=== PATIENT | female | born 1935 | race Caucasian/White ===

== ENCOUNTER 2018-11-11 05:03 | Inpatient (IN) ==
--- NOTE | 2018-11-05 09:06 | Anesthesiology Consultation ---
Date of Service November 05, 2018 History Surgery Operation Date: 11/11/18 07:30 Proposed Procedures p Robotic Left Video Assisted Thoracoscopy with Left Lower Lobe Wedge Resection , Possible Left Lower Lobectomy with Mediastinal Lymphadenectomy - Clement Kay MD, FACS Height/Weight Height: 5 ft 2 in Weight: 87.543 kg Allergies Allergy/AdvReac Type Severity Reaction Status Date / Time No Known Allergies Allergy Verified 10/13/18 08:12 Medications Home Medications Medication Instructions Recorded Confirmed Last Taken aspirin [Aspirin Low Dose] 81 mg PO QAM 09/21/18 10/13/18 10/01/18 05:00 atorvastatin 20 mg PO HS 09/21/18 10/13/18 10/01/18 18:00 mg lansoprazole 30 mg PO QAM 09/21/18 10/13/18 10/02/18 03:00 lisinopril 5 mg PO QAM 09/21/18 10/13/18 10/02/18 03:00 mg metoprolol succinate 25 mg PO QAM 09/21/18 10/13/18 10/02/18 03:00 mg vitamins A,C,L-fqlo-pbfbbk 1 cap PO HS 09/21/18 10/13/18 10/01/18 18:00 [PreserVision AREDS] Past Medical History Medical History Hypertension Hyperlipidemia GERD (gastroesophageal reflux disease) Osteoarthritis Obesity Past Family History Family History Grandmother Family hx of colon cancer Past Surgical History Surgical History History of adenoidectomy History of tonsillectomy History of cataract surgery BILATERAL History of cholecystectomy OPEN History of colonoscopy History of open reduction and internal fixation (ORIF) procedure RIGHT ANKLE History of hysterectomy Social History Smoking Status: Never smoker Do You Dip or Chew Tobacco: No Hx Alcohol Use: No Alcohol Intake Frequency Comment: 0 Hx Substance Use: No substance use type: does not use
--- NOTE | 2018-11-06 10:21 | Anesthesiology Consultation ---
Date of Service November 06, 2018 Assessment & Plan Chart Review Chart Review: Acceptable Risk for Surgery (PENDING PREOP LABS AND EVALUATION OF CLINICAL STATUS AM DOS) and Patient NOT seen in Pre Admission Testing History Surgery Operation Date: 11/11/18 07:30 Proposed Procedures p Robotic Left Video Assisted Thoracoscopy with Left Lower Lobe Wedge Resection , Possible Left Lower Lobectomy with Mediastinal Lymphadenectomy - Clement Kay MD, FACS Height/Weight Height: 5 ft 2 in Weight: 87.543 kg Allergies Allergy/AdvReac Type Severity Reaction Status Date / Time No Known Allergies Allergy Verified 10/13/18 08:12 Medications Home Medications Medication Instructions Recorded Confirmed Last Taken aspirin [Aspirin Low Dose] 81 mg PO QAM 09/21/18 10/13/18 10/01/18 05:00 atorvastatin 20 mg PO HS 09/21/18 10/13/18 10/01/18 18:00 mg lansoprazole 30 mg PO QAM 09/21/18 10/13/18 10/02/18 03:00 lisinopril 5 mg PO QAM 09/21/18 10/13/18 10/02/18 03:00 mg metoprolol succinate 25 mg PO QAM 09/21/18 10/13/18 10/02/18 03:00 mg vitamins A,C,R-nffq-xooowk 1 cap PO HS 09/21/18 10/13/18 10/01/18 18:00 [PreserVision AREDS] Past Medical History Medical History Hypertension Hyperlipidemia GERD (gastroesophageal reflux disease) Osteoarthritis Obesity Pulmonary nodule Past Family History Family History Grandmother Family hx of colon cancer Past Surgical History Surgical History History of adenoidectomy History of tonsillectomy History of cataract surgery BILATERAL History of cholecystectomy OPEN History of colonoscopy History of open reduction and internal fixation (ORIF) procedure RIGHT ANKLE History of hysterectomy Social History Smoking Status: Never smoker Do You Dip or Chew Tobacco: No Hx Alcohol Use: No Alcohol Intake Frequency Comment: 0 Hx Substance Use: No substance use type: does not use Testing Electrocardiogram Date: 09/23/18 NSR with sinus arrhythmia at 61bpm. RBBB. Chest X-Ray Date: 10/02/18 Findings: + atherosclerosis of thoracic aorta Left upper lung nodule. Mild cardiomegaly.
[2018-11-11] MEDS ORDERED: LR 15ML/HR IV SCH (06:00)
[2018-11-11] MEDS ORDERED: MIDAZOLAM HCL 1 MG/ML 2ML VIAL ONE (06:44)
[2018-11-11] MEDS ORDERED: fentaNYL citrate 100 MCG/2 ML VIAL ONE ×2 (06:44→12:31)
[2018-11-11] MEDS ORDERED: LIDOCAINE 2% JELLY 5 ML TUBE ONE (06:48)
[2018-11-11] MEDS ORDERED: SODIUM CHLORIDE 0.9% PF 50 ML VIAL ONE (07:04)
[2018-11-11] MEDS ORDERED: BUPIVACAINE LIPOSOME 1.3% 266 MG/20 ML VIAL INFIL ONE (07:04)
[2018-11-11] MEDS ORDERED: BUPIVACAINE 0.5 % 5 MG/1 ML MPF 30ML VIAL ONE (07:04)
--- NOTE | 2018-11-11 07:09 | History & Physical Report ---
Date of Service November 11, 2018 Assessment & Plan (1) Left lower lobe pulmonary nodule: robot assisted left thoracoscopy with wedge resection LLL mass, possible left lower lobectomy with mediastinal lymphadenectomy Present on Admission?: Yes History of Present Illness Primary Care Provider: Luís San 83 yo female with an asymptomatic LLL mass. Has undergone a work up , including an EBUS and it appears she is a surgical candidate. Long discussion with patient and the family in the office X 2 and this am. Will proceed with a robot assisted left thoracoscopic wedge resection of mass with frozen section and probable left lower lobectomy with a lymph node dissection. Allergies Allergy/AdvReac Type Severity Reaction Status Date / Time No Known Allergies Allergy Verified 11/11/18 05:33 Home Medications Home Medications Medication Instructions Recorded Confirmed Type aspirin [Aspirin Low Dose] 81 mg PO QAM 09/21/18 11/11/18 History atorvastatin 20 mg PO HS 09/21/18 11/11/18 History lansoprazole 30 mg PO QAM 09/21/18 11/11/18 History lisinopril 5 mg PO QAM 09/21/18 11/11/18 History metoprolol succinate 25 mg PO QAM 09/21/18 11/11/18 History vitamins A,C,P-aytn-tajoav 1 cap PO HS 09/21/18 11/11/18 History [PreserVision AREDS] Past Med/Surg History Family History Grandmother Family hx of colon cancer Social History Current Living Situation: Alone Other Information That Helps Us Care for You: No Feels Safe at Home: Yes Safety Concerns: Feels Safe At This Time Smoking Status: Never smoker Do You Dip or Chew Tobacco: No Hx Alcohol Use: No Hx Substance Use: No Beliefs That Will Affect Care: None Preferred Language: Setswana Communication Ability: Effective Learning Designer Required: No Review of Systems All systems reviewed & are unremarkable except as noted in HPI & below Physical Exam 2 Vital Signs (Past 24 Hours): Last Vital Signs Temp 36.9 C 11/11/18 05:35 Pulse 66 11/11/18 05:35 Resp 18 11/11/18 05:35 BP 165/86 H 11/11/18 05:35 Pulse Ox 96 11/11/18 05:35 Physical Exam: A and O X 3. Constitutional: WD/WN, vitals as above Eyes: PERRL, conjunctivae normal, anicteric sclerae ENMT: external ear and nose normal, oropharynx normal Neck: trachea midline, no thyromegaly Respiratory: Auscultation: lungs clear to auscultation bilaterally Cardiovascular: RRR, no murmur, no edema Gastrointestinal (Abdomen): normal bowel sounds, soft, nontender, no hepatosplenomegaly Musculoskeletal: no cyanosis or clubbing, extremities motor strength 5/5 Skin: no rashes, warm and dry Neurologic: patellar DTR's 2+ bilat, sensation intact
[2018-11-11] MEDS ORDERED: CEFAZOLIN 250 MG/ML 1 GM VIAL ONE (08:18)
[2018-11-11] MEDS ORDERED: SODIUM CHLORIDE 0.9% INJ 10 ML VIAL ONE (08:18)
[2018-11-11] MEDS ORDERED: DEXAMETHASONE SOD INJ 4 MG/ML VIAL ONE (08:58)
[2018-11-11] MEDS ORDERED: LIDOCAINE HCL 2% 2 ML VIAL/AMP(20MG/ML) INFIL ONE (08:58)
[2018-11-11] MEDS ORDERED: NEOSTIGMINE METHYLSULFATE 5 MG/5 ML SYR ONE (08:58)
[2018-11-11] MEDS ORDERED: GLYCOPYRROLATE 0.2 MG/ML VIAL ONE (08:58)
[2018-11-11] MEDS ORDERED: ROCURONIUM BROMIDE 10 MG/ML 5 ML VIAL ONE ×2 (08:58→10:22)
[2018-11-11] MEDS ORDERED: PROPOFOL IV EMULSION 10 MG/ML 20 ML VIAL IV ONE (08:58)
[2018-11-11] MEDS ORDERED: ONDANSETRON INJ 2 MG/ML 2 ML VIAL ONE (08:58)
[2018-11-11] MEDS ORDERED: CEFAZOLIN 2000MG 2,000 MG/15 ML SYR IV SCH (09:00)
[2018-11-11] MEDS ORDERED: TISSEEL FIBRIN SEALANT 10ML TOP ONE (11:41)
--- NOTE | 2018-11-11 11:55 | Post Operative Brief Note ---
Immediate Post Op Note v1 Date of Surgery November 11, 2018 Pre & Post Diagnosis Operation Date: 11/11/18 07:30 Pre-Op Diagnosis: Slow-growing mass superior segment left lower lobe Post-Op Diagnosis: Adenocarcionoma left lower lobe Procedure Operation Date: 11/11/18 07:30 Actual Procedures p Left Robot Video-Assisted Thoracoscopy with Left Lower Lobe Wedge Resection, Left Lower Lobectomy, with Mediastinal Lymphadenectomy(Left) - Clement Kay MD, FACS Surgeon Clement Kay MD, FACS Real Estate Listing Consultant Taty LEON Estimated Blood Loss 200 Findings Consistent with Post-Op Diagnosis Drains Chest Tube (24fr placed intraoperatively)
[2018-11-11] MEDS ORDERED: METOCLOPRAMIDE HCL INJ 5 MG/ML 2 ML VIAL IV ONE (12:20)
[2018-11-11] MEDS ORDERED: LABETALOL HCL IV 5 MG/ML 20ML IV ONE (12:31)
[2018-11-11] MEDS ORDERED: ePHEDrine sulfate 50 MG/ML AMP IV PRN (12:51)
[2018-11-11] MEDS ORDERED: ATROPINE SULFATE 0.1 MG/ML 10ML SYR IV PRN (12:51)
[2018-11-11] MEDS ORDERED: HydrALAZINE HCL 20 MG/ML VIAL ONE (12:51)
[2018-11-11] MEDS ORDERED: HYDROmorphone INJ 2 MG/ML SYR/VIAL IV PRN (12:51)
[2018-11-11] MEDS ORDERED: HydrALAZINE HCL 20 MG/ML VIAL IV ONE (12:57)
[2018-11-11] MEDS ORDERED: HYDROmorphone INJ 1 MG/ML SYRINGE ONE (13:04)
--- NOTE | 2018-11-11 13:07 | XRay Report ---
XR chest 1V portable CLINICAL HISTORY: 83 years-old Female presenting with LLL. TECHNIQUE: Portable upright AP view of the chest was obtained. COMPARISON: 10/02/2018 and PET/CT performed at an outside hospital from 08/29/2018. FINDINGS: The patient is VENTURA rotated. Large bore left pleural drain terminates at the left apex. Cardiac silhou ette enlarged. Overall image quality is significantly degraded by body habitus and portable technique . Mildly low lung volumes. Minimal bibasilar opacity. No large effusion or pneumothorax. Osseous stru ctures normal. Upper abdomen normal. IMPRESSION: 1. Limited evaluation due to body habitus and portable technique. No evidence of pneumothorax with a large bore left pleural drain in place. Electronically signed by: Galileo Francis M.D. 11/11/2018 1:06 PM
--- NOTE | 2018-11-11 13:53 | Operative Report ---
DATE OF OPERATION: 11/11/2018 PREOPERATIVE DIAGNOSIS: Enlarging mass, left lower lobe. POSTOPERATIVE DIAGNOSIS: Nonsmall cell lung carcinoma, left lower lobe. PROCEDURE: 1. Robot assisted thoracoscopic wedge of superior segment left lower lobe. 2. Robot assisted thoracoscopic left lower lobectomy. 3. Mediastinal lymphadenectomy. SURGEON: Clement Kay MD. WOUND CARE SPECIALIST: EDWARD Sweet. (Mr. Bailey was present for the entire case and was instrumental at the patient's bedside while I was at the console). ANESTHESIA: General anesthesia, endotracheal intubation using double lumen tube. SPECIFICS OF PROCEDURE AND FINDINGS: This is an 83-year-old female who has never smoked cigarettes, but has a hypermetabolic mass growing in superior segment of her left lower lobe. She was worked up extensively including sampling of her mediastinal lymph nodes with endobronchial ultrasound and deemed to be a candidate for surgery. On the morning of 11/11/2018, I treated the patient in the Operating Room and did uncomplicated wedge resection of the left lower lobe mass. It turns out indeed this was an apparent adenocarcinoma. I proceeded with an uncomplicated left lower lobectomy with lymph node dissection. She tolerated it well and was extubated in the room. She had negligible blood loss. DESCRIPTION OF PROCEDURE: The patient was brought to Operating Room and laid in supine position. General anesthesia induced and endotracheal intubation was performed with a double lumen tube. After appropriate monitoring lines had been placed, the patient was turned to the right lateral decubitus position. Left chest prepped and draped in usual sterile fashion. Appropriate antibiotics were given and timeout had been called. A 5 mm port was placed just a bit anterior to mid axillary line at about the 8th interspace. Upon going in, it could be seen there really were very little in the way of adhesions. I then placed a 5 mm port in the paraspinous area and 8 mm port posteriorly, 8 mm port anterior and then we put a 15 mm port between the 2 anterior ports, but just above the patient's diaphragm. The 5 mm port was switched out for a 12 mm camera port. Carbon dioxide was insufflated. Upon going in, it could be seen that the left lower lobe had some adhesions, so I developed the fissure posteriorly and superiorly to free up enough of the superior segment of left lower lobe to wedge this out. This was delivered off the field in an Endobag. While waiting for the frozen section, I then took down the inferior pulmonary ligament, biopsied level 7, few level 8 nodes and a level 9 node. Coming in up, I did not see much in the way of 5 or 6, but there were fairly dense adhesions. I biopsied the level 10 node. We biopsied multiple levels, level 11 and level 12 nodes. I started developing the fissure posteriorly. The lymph nodes were quite adherent to the vessels. Frozen section came back as an apparent nonsmall cell lung carcinoma. It is important to note that when dissecting out the level 7 node, I came upon some dense white tissue and I sent a small portion off and this was muscle presumably from the esophageal wall. It did not appear malignant. I then meticulously took down the vessels which were very difficult because of the hard lymph nodes which were attached. I finally took out the 2 vessels to the superior segment as well as vessels off the continuation of pulmonary artery. It was difficult to dissect out the anterior fissure and difficult to delineate the lingual artery. Finally after meticulously dissecting this out, we finally divided the fissure between 2 branches, 1 going to the lingula, 1 going to the remaining left lower lobe. After this, we then carefully took down the branches to the left lower lobe. I then divided the inferior pulmonary vein, which we had dissected out earlier in the case and taken down to level 8 and 9 nodes. This went without difficulty. There are multiple lymph nodes, which were hard and did not appear particularly abnormal that they were not hard in weight, but more acanthotic and hard. We fired Endo-STANLEY stapler just below the takeoff of the lingual bronchus. We then completed our fissure anteriorly and delivered the specimen off the field in an Endobag by enlarging the clinic office assistant's port. I then irrigated out the chest. I really did not see much in the way of leaking and went back to 2-lung ventilation. I did use 10 mL of Tisseel to cover the vessels, staple lines as well as the bronchus and where we had dissected out the lymphatics posteriorly. I did have anesthesia place an orogastric tube and we manipulated until we got it in the area of this esophagus and insufflated air while we had covered this area with warm saline. We saw no evidence of any leaking. A 24-Irish chest tube was placed in the anterior thoracoscopy port and directed towards the apex and held in place with heavy silk suture. We then closed the clinic office assistant's port with 0 Vicryl in running continuous fashion to close the muscle layers and a posterior 8 mm port was closed using a single 0 Vicryl. A 4-0 Monocryl was used in running subcuticular fashion to close all of the skin edges. Heavy silk was used to suture the chest tube in place. It should be noted that before the case started, we mixed 266 mg of Exparel with 30 mL of bupivacaine 0.25% and 250 mL of normal saline. We then used this to inject each of the port sites prior to opening them. I then did an intercostal block from the 2nd to the 11th rib under thoracoscopic guidance. The patient tolerated the procedure well, was extubated in the room. She was transported to the Postanesthesia Care Unit in stable condition. I attest to the content of the Intraoperative Record and any orders documented therein. Any exceptions are noted below. MELINA
[2018-11-11] MEDS ORDERED: MoRPHine SULFATE 2 MG/ML CARP IV PRN (13:57)
[2018-11-11] MEDS ORDERED: ONDANSETRON INJ 2 MG/ML 2 ML VIAL IV PRN (13:57)
[2018-11-11] MEDS ORDERED: OXYCODONE HCL IR 5 MG TAB (IMMEDIATE RELEASE) PO PRN (13:57)
[2018-11-11] MEDS ORDERED: KETOROLAC TROMETHAMINE 15 MG/ML VIAL IV PRN (13:57)
[2018-11-11] MEDS: ACETAMINOPHEN 1,000 MG/100 ML VIAL IV SCH ×2 (14:17→21:15)
[2018-11-11] MEDS: D5W AND 1/2NSS 1,000 ML IV SCH ×2 (14:18→23:41)
--- NOTE | 2018-11-11 14:48 | Anesthesiology Progress Note ---
Date of Service November 11, 2018 Anesthesia Post Procedure Vital Signs Vital Signs: Temp Pulse Pulse Pulse Resp BP BP 11/11/18 14:26 36.2 C L 71 15 160/78 H 11/11/18 14:09 80 12 155/76 H 11/11/18 13:55 36.4 C L 11/11/18 13:38 60 18 156/78 H 11/11/18 13:30 36.1 C L 69 16 165/65 H 11/11/18 13:20 61 15 160/61 H 11/11/18 13:10 65 16 162/62 H 11/11/18 13:00 63 16 162/77 H 11/11/18 12:50 61 16 11/11/18 12:40 58 L 16 11/11/18 12:30 60 16 175/74 H 11/11/18 12:21 36.0 C L 64 16 175/64 H 11/11/18 05:35 36.9 C 66 18 165/86 H BP Pulse Ox 11/11/18 14:26 97 11/11/18 14:09 97 11/11/18 13:55 11/11/18 13:38 97 11/11/18 13:30 149/54 H 97 11/11/18 13:20 158/51 H 97 11/11/18 13:10 155/52 H 99 11/11/18 13:00 171/57 H 100 11/11/18 12:50 180/60 H 100 11/11/18 12:40 181/62 H 100 11/11/18 12:30 172/59 H 100 11/11/18 12:21 100 11/11/18 05:35 96 Pain Intensity Left Chest: Pain Intensity: 5 Notes Mental Status: alert / awake / arousable Patient Amnestic to Procedure: Yes Nausea / Vomiting: adequately controlled Pain: adequately controlled Airway Patency, RR, SpO2: stable & adequate BP & HR: stable & adequate Hydration State: stable & adequate Anesthetic Complications: no major complications apparent and Pt Satisfied with anesthetic care
[2018-11-11] MEDS: METOCLOPRAMIDE HCL INJ 5 MG/ML 2 ML VIAL IV SCH ×2 (16:19→23:40)
[2018-11-11] MEDS: CEROVITE ADV FORMULA TAB PO SCH (20:11)
[2018-11-11] MEDS: DOCUSATE SODIUM 100 MG CAP PO SCH (20:11)
[2018-11-11] MEDS: ATORVASTATIN 20 MG TAB PO SCH (20:11)
[2018-11-12] MEDS: ACETAMINOPHEN 1,000 MG/100 ML VIAL IV SCH (06:00)
[2018-11-12 06:24] LABS: Basophils # (auto) 0.01 K/uL (0-0.2); Basophils % (auto) 0.1 %; Eosinophils # (auto) 0.01 K/uL (0-0.5); Eosinophils % (auto) 0.1 %; Hematocrit (blood only) 39.1 % (37-47); Hemoglobin 12.5 g/dL (12.0-16.0); Immature Granulocytes # (auto) 0.04 K/uL (0.00-0.02); Immature Granulocytes % (auto) 0.2 %; Lymphocytes # (auto) 1.42 K/uL (1.2-3.4); Lymphocytes % (auto) 7.8 %; Mean Corpuscular Volume 89.1 fL (80-100); Mean Platelet Volume 11.7 fL (7.4-10.4); Monocytes # (auto) 1.54 K/uL (0.11-0.59); Monocytes % (auto) 8.4 %; Neutrophils # (auto) 15.25 K/uL (1.4-6.5); Neutrophils % (auto) 83.4 %; Platelet Count 223 K/uL (130-400); RDW Coefficient of Variation 13.8 % (11.5-14.5); RDW Standard Deviation 45.3 fL (36.4-46.3); Red Blood Count 4.39 M/uL (4.2-5.4); White Blood Count 18.27 K/uL (4.8-10.8)
[2018-11-12 06:34] LABS: INR 1.1 (0.9-1.1); Partial Thromboplastin Time 25.8 Seconds (21.0-31.0)
[2018-11-12 06:40] LABS: BUN Creatinine Ratio 15.9 (10-20); Calcium 8.2 mg/dl (8.5-10.1); Creatinine Clr Calc Pharmacy 68.8 ml/min; Est GFR (African American) 95.5; Est GFR (Non-African American) 82.4; Potassium 3.8 mmol/L (3.5-5.1)
[2018-11-12] MEDS: METOCLOPRAMIDE HCL INJ 5 MG/ML 2 ML VIAL IV SCH (07:17)
--- NOTE | 2018-11-12 07:19 | XRay Report ---
XR chest 1V portable CLINICAL HISTORY: Postop left lower lobectomy COMPARISON STUDY: 11/11/2018 FINDINGS: The heart is the upper limits of normal in size. There is been resolution of the right midd le lobe atelectasis. There is a left-sided chest tube present. There is no pneumothorax. There is no lobar consolidation. There is mild subcutaneous emphysema on the left. There is mild left paramediast inal atelectasis/postsurgical edema.[ IMPRESSION: 1. No evidence of pneumothorax 2. No evidence of lobar consolidation 3. Resolution of the right middle lobe atelectasis Electronically signed by: Gibran Bojorquez M.D. 11/12/2018 7:18 AM
[2018-11-12] MEDS ORDERED: TRAMADOL HCL 50 MG TABLET PO PRN (07:39)
--- NOTE | 2018-11-12 08:05 | Progress Note ---
DATE: 11/12/2018 Ms. Paz was seen today on 11/12/18. Her saturations are 96% on 2 liters. Her stat vital signs are stable. She is ambulating in the hallway. She drops down if she is not on 2 liters however. She has been making urine well and she has tolerated a diet last night and drinking fluids without difficulty. She has some mild end expiratory wheezing and some rhonchi. We are going to stop her IV today and continue to ambulate her. Her pain control has been very good. She does not have an air leak. Her drainage has been minimal. In reviewing her labs her white count is 18,270 but that is not surprising. Hemoglobin stable at 12.5. Her sodium is 138, potassium 3.8 and her BUN and creatinine are 10 and 0.63 respectively. Her x-ray looks much better. She has had resolution of the right middle lobe collapse from yesterday. Her lung is nicely expanded. She has elevation of her left hemidiaphragm as would be expected with the volume loss. ASSESSMENT AND PLAN: Postoperative day #1 status post robotic-assisted thoracoscopic left lower lobectomy with lymph node dissection for a non-small cell lung carcinoma. We will stop her IV today. Increase her ambulation. My hope is that we can get her discharged tomorrow. I did try and wean her O2.
[2018-11-12] MEDS: PANTOprazole 40 MG TAB PO SCH (08:26)
[2018-11-12] MEDS: ASPIRIN 81 MG ECTAB PO SCH (08:26)
[2018-11-12] MEDS: DOCUSATE SODIUM 100 MG CAP PO SCH ×2 (08:26→21:00)
[2018-11-12] MEDS: LISINOPRIL 5 MG TAB PO SCH (08:26)
[2018-11-12] MEDS: METOPROLOL SUCC 25MG EXT REL TAB PO SCH (08:27)
[2018-11-12] MEDS: ENOXAPARIN INJ 40 MG/0.4 ML SYR SQ SCH (08:27)
--- NOTE | 2018-11-12 08:35 | Anesthesiology Progress Note ---
Date of Service November 12, 2018 Anesthesia Post Procedure Vital Signs Vital Signs: Temp Pulse Pulse Resp BP BP Pulse Ox 11/12/18 07:52 92 11/12/18 07:15 11/12/18 06:00 36.3 C L 74 21 152/57 H 96 11/12/18 02:00 36.5 C 85 17 156/71 H 95 11/12/18 00:00 36.6 C 91 H 18 164/73 H 94 11/11/18 21:53 36.5 C 84 16 120/65 96 11/11/18 19:52 36.4 C L 90 18 160/76 H 94 11/11/18 17:56 36.5 C 81 20 149/76 H 97 11/11/18 16:54 36.3 C L 82 16 151/80 H 97 11/11/18 15:58 36.3 C L 74 16 145/70 H 97 11/11/18 14:58 36.3 C L 71 16 146/75 H 96 11/11/18 14:26 36.2 C L 71 15 160/78 H 97 11/11/18 14:09 80 12 155/76 H 97 11/11/18 13:55 36.4 C L 11/11/18 13:38 60 18 156/78 H 97 11/11/18 13:30 36.1 C L 69 16 165/65 H 149/54 H 97 11/11/18 13:20 61 15 160/61 H 158/51 H 97 11/11/18 13:10 65 16 162/62 H 155/52 H 99 11/11/18 13:00 63 16 162/77 H 171/57 H 100 11/11/18 12:50 61 16 180/60 H 100 11/11/18 12:40 58 L 16 181/62 H 100 11/11/18 12:30 60 16 175/74 H 172/59 H 100 11/11/18 12:21 36.0 C L 64 16 175/64 H 100 Pulse Ox 11/12/18 07:52 11/12/18 07:15 93 11/12/18 06:00 11/12/18 02:00 11/12/18 00:00 11/11/18 21:53 11/11/18 19:52 11/11/18 17:56 11/11/18 16:54 11/11/18 15:58 11/11/18 14:58 11/11/18 14:26 11/11/18 14:09 11/11/18 13:55 11/11/18 13:38 11/11/18 13:30 11/11/18 13:20 11/11/18 13:10 11/11/18 13:00 11/11/18 12:50 11/11/18 12:40 11/11/18 12:30 11/11/18 12:21 Notes Mental Status: alert / awake / arousable and participated in evaluation Patient Amnestic to Procedure: Yes Nausea / Vomiting: adequately controlled Pain: adequately controlled Airway Patency, RR, SpO2: stable & adequate BP & HR: stable & adequate Hydration State: stable & adequate Anesthetic Complications: no major complications apparent and Pt Satisfied with anesthetic care
[2018-11-12] MEDS: ACETAMINOPHEN 325 MG TAB PO SCH ×2 (12:18→18:11)
[2018-11-12] MEDS: ATORVASTATIN 20 MG TAB PO SCH (21:00)
[2018-11-12] MEDS: CEROVITE ADV FORMULA TAB PO SCH (21:00)
[2018-11-12] MEDS: AMOXICILLIN/CLAVULANATE 875 MG TAB PO SCH (22:51)
[2018-11-13] MEDS: ACETAMINOPHEN 325 MG TAB PO SCH ×2 (00:14→05:46)
--- NOTE | 2018-11-13 07:19 | XRay Report ---
XR chest 1V portable CLINICAL HISTORY: Postop left lower lobectomy COMPARISON STUDY: 11/12/2018 FINDINGS: The heart remains enlarged. There is stable mediastinal prominence. There is no change the position of the left-sided chest tube. No pneumothorax is visualized. There is mild basilar atelectas is. There is no failure.[ IMPRESSION: 1. Stable postsurgical changes status post left lower lobectomy 2. Mild basilar atelectasis 3. No change the position of the left-sided chest tube. No evidence of pneumothorax Electronically signed by: Gibran Bojorquez M.D. 11/13/2018 7:18 AM
[2018-11-13] MEDS: AMOXICILLIN/CLAVULANATE 875 MG TAB PO SCH (08:47)
[2018-11-13] MEDS: DOCUSATE SODIUM 100 MG CAP PO SCH (08:48)
[2018-11-13] MEDS: ASPIRIN 81 MG ECTAB PO SCH (08:48)
[2018-11-13] MEDS: PANTOprazole 40 MG TAB PO SCH (08:49)
[2018-11-13] MEDS: METOPROLOL SUCC 25MG EXT REL TAB PO SCH (08:51)
[2018-11-13] MEDS: LISINOPRIL 5 MG TAB PO SCH (08:51)
[2018-11-13] MEDS: ENOXAPARIN INJ 40 MG/0.4 ML SYR SQ SCH (08:52)
--- NOTE | 2018-11-13 08:53 | XRay Report ---
XR chest 1V portable CLINICAL HISTORY: tube removal dyspnea COMPARISON STUDY: 11/13/2018 6:45 AM FINDINGS: Interval removal of the left-sided chest tube. No postprocedural pneumothorax. Unchanging p arenchymal findings of base. IMPRESSION: No pneumothorax post left chest tube removal. The above report was generated using voice recognition software. It may contain grammatical, syntax or spelling errors. Electronically signed by: Misael Ivy M.D. 11/13/2018 8:51 AM
--- NOTE | 2018-11-13 15:03 | Discharge Summary ---
DISCHARGE DIAGNOSIS: Nonsmall cell lung carcinoma, left lower lobe. HOSPITAL COURSE: This is an 83-year-old female who has never smoked cigarettes, found to have a hypermetabolic mass which was growing, although slowly in the superior aspect of her left lower lobe. She was worked up extensively including an endobronchial ultrasound with biopsy and it was felt that she was a candidate for surgery. On the morning of 11/11/2018, the patient was taken to the operating room here at [facility] and did an uncomplicated wedge resection of the left lower lobe mass. This appeared to be an adenocarcinoma. This was evaluated under frozen section. I proceeded with an uncomplicated left lower lobectomy and lymph node dissection. She tolerated it well, was extubated in the room. She did not have an air leak. She was watched on the floor for 48 hours. She really did not have any issues except the second night postoperatively, she felt feverish, although she did not have a temperature. She coughed up some bloody mucus which was not unexpected and she only did this once. Her x-ray looked quite good the following day, which is postop day 2 and I removed her chest tube. Her chest x-ray looked quite good. Our pathology is not back yet, but by all parameters, she looked quite good. I saw the patient on daily basis and discussed this with her family. We are going to proceed with discharge today. I will see her back in the office next week. Discharge instructions and meds including tramadol were given. I am also going to keep her on Augmentin for 5 more days. I do not think that she had an issue, but after discussion with the patient and the family and the nursing staff, I felt it is prudent to go ahead and give her 5 more days. I will see her in the office next week and will go over final pathology.
== END 2018-11-13 11:15 | disposition home or self-care (01) | DRG 165 ==
LOC: ASU 05:03 → 3N 12:05